=== PATIENT | female | born 2000 | race Caucasian/White ===

== ENCOUNTER 2020-01-08 10:24 | Emergency (ER) | payer OTHER, SELFPAY ==
[2020-01-08 10:40] VITALS: BP 120/75; PULSE 105; RESP 20; TEMP 37.2; O2SAT 98
--- NOTE | 2020-01-08 10:44 | ED.URI ---
HPI - URI/Sore Throat General Chief Complaint: Upper Respiratory Infection Stated Complaint: upper respiratory infection Source: patient Mode of arrival: ambulatory Limitations: no limitations History of Present Illness HPI Narrative: Patient is a 19-year-old female who presents complaining of sore throat, chills, body aches and headache x3 days. She reports she has just returned from college this past week. She denies cough, congestion or shortness of breath. She denies any significant medical history. She denies taking [id number] medications at this time. MD elicited complaint: sore throat Related Data Home Medications Medication Instructions Recorded Confirmed norgestimate-ethinyl estradiol 1 tablet PO DAILY 01/20/19 01/08/20 [Estarylla] Allergies Allergy/AdvReac Type Severity Reaction Status Date / Time No Known Allergies Allergy Verified 01/20/19 19:55 Review of Systems Review of Systems: Narrative: CONSTITUTIONAL: Reports chills, body aches EYES: Denies visual changes, redness, or discharge. ENT: Reports sore throat CARDIOVASCULAR: Denies chest pain, palpitations, or edema. RESPIRATORY: Denies cough or dyspnea. GASTROINTESTINAL: Denies abdominal pain, nausea, vomiting, or diarrhea. GENITOURINARY: Denies dysuria or hematuria. SKIN: Denies rash or itching. MUSCULOSKELETAL: Denies back pain, joint pain, or myalgia. NEUROLOGIC: Reports headache PSYCHIATRIC: Denies anxiety or depression. PMFSH Past Medical History Medical History (Updated 01/08/20 @ 10:56 by BASIM Israel) No significant past medical history Surgical History Surgical History (Updated 01/08/20 @ 10:46 by BASIM Israel) No significant past surgical history Family History Family History Other No significant family history Social History Social History Smoking status: Never smoker Second hand tobacco smoke exposure: No Alcohol intake: never Gender identity (if verbalized by the patient): Female Exam Narrative: Exam Narrative: GENERAL: Well-appearing, well-nourished, and in no acute distress. HEAD: Normocephalic, atraumatic. EYES: No redness or drainage. ENT: Mucous membranes pink and moist. Throat with mild erythema, no edema or exudate CHEST: No respiratory distress. HEART: Regular rate and rhythm. EXTREMITIES: Normal range of motion. No edema. SKIN: Warm, dry, no rash. NEURO: No focal deficits. Alert and oriented x3. Gait steady. PSYCH: Normal affect. No signs of depression or anxiety. Course Vital Signs Vital signs: Vital Signs Temperature 37.2 C 01/08/20 10:40 Pulse Rate 105 H 01/08/20 10:40 Respiratory Rate 20 01/08/20 10:40 Blood Pressure 120/75 01/08/20 10:40 Pulse Oximetry 98 01/08/20 10:40 Temperature 37.2 C 01/08/20 10:40 Pulse Rate 105 H 01/08/20 10:40 Respiratory Rate 01/08/20 10:40 Blood Pressure 120/75 01/08/20 10:40 Pulse Oximetry 98 01/08/20 10:40 Reviewed MDM - URI/Sore Throat MDM Narrative Medical decision making narrative: Patient's rapid strep and influenza are negative in urgent care. Discussed Covid testing with patient and risk factors for Covid. Patient agrees to Covid testing. Covid testing ordered at this time. Patient instructed on symptomatic treatment as well as on increasing symptoms. Patient is aware that if she develops chest pain or shortness of breath, she should go to the emergency department immediately for further evaluation. Patient is stable for discharge to home with outpatient follow-up as needed. Differential Diagnosis Differential diagnosis: Likely upper respiratory infection, viral infection, bronchitis, influenza and pharyngitis Lab Data Attestation: I reviewed the patient's lab results. Labs: Influenza A Screen Negative
== END 2020-01-08 11:01 | disposition home or self-care (01) ==
PROVIDERS: Emergency Provider Nurse Practitioner; PCP Family Medicine
DX: J06.9 Acute upper respiratory infection, unspecified (principal); Z20.828 Contact with and (suspected) exposure to other viral communicable diseases
CPT/HCPCS: 87081; 87804; 87880; 99213; G0463

== ENCOUNTER 2020-01-09 08:10 | Outpatient (NON) | payer OTHER, SELFPAY ==
[2020-01-09 20:46] LABS: SARS-CoV-2 RNA PCR Negative
== END 2020-01-09 08:11 ==
PROVIDERS: PCP Family Medicine; Visit Provider Nurse Practitioner
DX: J06.9 Acute upper respiratory infection, unspecified (principal); Z20.828 Contact with and (suspected) exposure to other viral communicable diseases
CPT/HCPCS: 87635; C9803; U0003

== ENCOUNTER 2022-01-29 18:12 | Emergency (ER) | payer OTHER, SELFPAY ==
[2022-01-29 18:32] VITALS: BP 134/97; PULSE 105; RESP 20; TEMP 36.7; O2SAT 99
--- NOTE | 2022-01-29 18:49 | ED.EAR ---
HPI - Ear Problem General Chief complaint: Ear Stated complaint: lt ear discomfort,congestion Time Seen by Provider: 01/29/22 18:49 Source: patient Mode of arrival: ambulatory Limitations: no limitations History of Present Illness HPI Narrative: 21-year-old female presents with complaint of left ear for pain for 1 week. Reports last week she had congestion, runny nose that resolved. Afebrile. No other complaints today. All systems reviewed and negative except as noted above. Related Data Home Medications Medication Instructions Recorded Confirmed norgestimate 0.25 mg-ethinyl 1 tablet PO DAILY 01/20/19 01/29/22 estradiol 35 mcg tablet (Estarylla) Allergies Allergy/AdvReac Type Severity Reaction Status Date / Time No Known Allergies Allergy Verified 01/29/22 18:32 Review of Systems Review of Systems: CONSTITUTIONAL: Denies fever, chills, or sweats. EYES: Denies visual changes, redness, or discharge. ENT: Denies rhinorrhea, congestion, sore throat . Reports left ear pain. CARDIOVASCULAR: Denies chest pain, palpitations, or edema. RESPIRATORY: Denies cough or dyspnea. GASTROINTESTINAL: Denies abdominal pain, nausea, vomiting, or diarrhea. GENITOURINARY: Denies dysuria or hematuria. SKIN: Denies rash or itching. MUSCULOSKELETAL: Denies back pain, joint pain, or myalgia. NEUROLOGIC: Denies headache, numbness, or weakness. PSYCHIATRIC: Denies anxiety or depression. All other systems reviewed are negative, except as documented in HPI. [facility] Past Medical History Medical History (Updated 01/29/22 @ 18:55 by Alcira Pacheco NP) No significant past medical history Surgical History Surgical History (Updated 01/08/20 @ 10:46 by Janice Garcia, [employer]) No significant past surgical history Family History Family History Other No significant family history Social History Social History Smoking status: Never smoker Second hand tobacco smoke exposure: No Alcohol intake: never Gender identity (if verbalized by the patient): Female Comments At time of signature, agree with nursing past medical, surgical, social and family history. There is no relevant family history pertinent to the presenting complaint. Exam Narrative: GENERAL: This is a well-nourished, well-developed patient, in no apparent distress. HEAD: normocephalic, atraumatic. EYES: PERRL. Sclera clear/white. Vision is grossly intact. EARS: External ears normal, auditory canals clear and without drainage , Purulence fluid left TM. Right TM is normal. No perforation bilaterally. NOSE: External nose normal with no obvious nasal discharge, nares without redness, no rhinorrhea. THROAT: Mucous membranes moist, posterior pharynx clear. NECK: Neck supple, non-tender without lymphadenopathy, masses or thyromegaly. CARDIOVASCULAR: Regular rate and rhythm without murmurs, gallops, or rubs. RESPIRATORY: Clear to auscultation. Breath sounds equal bilaterally. No wheezes, rales, or rhonchi. SKIN: warm, Dry, intact with no suspicious lesions or rash, good texture and turgor. NEURO: awake, alert, and oriented to person, place and time. There were no obvious focal neurologic abnormalities. EXTREMITIES: No joint tenderness, effusion, or edema noted Course Course Level of Care: Express Care Visit Vital Signs Vital signs: Vital Signs Temperature 36.7 C 01/29/22 18:32 Pulse Rate 105 H 01/29/22 18:32 Respiratory Rate 20 01/29/22 18:32 Blood Pressure 134/97 H 01/29/22 18:32 Pulse Oximetry 99 01/29/22 18:32 Oxygen Delivery Room Air 01/29/22 18:32 Temperature 36.7 C 01/29/22 18:32 Pulse Rate 105 H 01/29/22 18:32 Respiratory Rate 20 01/29/22 18:32 Blood Pressure 134/97 H 01/29/22 18:32 Pulse Oximetry 99 01/29/22 18:32 Oxygen Delivery Room Air 01/29/22 18:32 reviewed Medical Decisio
== END 2022-01-29 19:37 | disposition home or self-care (01) ==
PROVIDERS: Emergency Provider Nurse Practitioner Family; PCP Family Medicine
DX: H66.92 Otitis media, unspecified, left ear (principal); E28.2 Polycystic ovarian syndrome
CPT/HCPCS: 99213; G0463

== ENCOUNTER 2022-11-17 08:30 | Outpatient (RCR) | payer OTHER, SELFPAY ==
[2022-09-18 13:27] VITALS: BMI 46.4
[2022-09-18 13:30] VITALS: BMI 46.4
[2022-11-17 08:27] VITALS: BMI 45.1
[2022-11-17 08:30] VITALS: BMI 45.1
== END 2022-12-08 10:20 | disposition home or self-care (01) ==
LOC: ANHDMC 08:30
PROVIDERS: PCP Family Medicine; Visit Provider Physician Assistant Medical
DX: E28.2 Polycystic ovarian syndrome (principal); R73.03 Prediabetes; Z68.42 Body mass index [BMI] 45.0-49.9, adult; Z71.3 Dietary counseling and surveillance
CPT/HCPCS: 97802; 97803

== ENCOUNTER 2023-01-29 08:31 | Outpatient (RCR) | payer OTHER, SELFPAY ==
[2023-01-29 08:30] VITALS: BMI 45.0
== END 2023-04-20 09:48 | disposition home or self-care (01) ==
LOC: ANHDMC 08:31
PROVIDERS: PCP Family Medicine; Visit Provider Physician Assistant Medical
DX: E28.2 Polycystic ovarian syndrome (principal); R73.03 Prediabetes; Z68.42 Body mass index [BMI] 45.0-49.9, adult; Z71.3 Dietary counseling and surveillance
CPT/HCPCS: 97803